=== PATIENT | male | born 1995 | race Caucasian/White ===

== ENCOUNTER 2020-04-10 06:01 | Outpatient (REF) | payer SELFPAY ==
[2020-04-10 06:18] LABS: COVID-19 Test Negative (Negative)
== END 2020-04-10 06:02 | disposition home or self-care (01) ==
LOC: HO.LAB 06:01
PROVIDERS: Visit Provider Internal Medicine
DX: Z20.828 Contact with and (suspected) exposure to other viral communicable diseases (principal)
CPT/HCPCS: 87635; C9803

== ENCOUNTER 2020-04-12 06:02 | Outpatient (REF) | payer OTHER, SELFPAY ==
[2020-04-12 06:25] LABS: COVID-19 Test Negative (Negative)
== END 2020-04-12 06:03 | disposition home or self-care (01) ==
LOC: HO.EMPCOV 06:02
PROVIDERS: Visit Provider Internal Medicine
DX: Z20.828 Contact with and (suspected) exposure to other viral communicable diseases (principal)
CPT/HCPCS: 87635; C9803

== ENCOUNTER 2020-06-17 13:14 | Outpatient (REF) | payer OTHER, SELFPAY ==
[2020-06-17 13:37] LABS: COVID-19 Test Negative (Negative)
== END 2020-06-17 13:15 | disposition home or self-care (01) ==
LOC: HO.EMPCOV 13:14
PROVIDERS: Visit Provider Internal Medicine
DX: Z20.822 Contact with and (suspected) exposure to COVID-19 (principal)
CPT/HCPCS: 36415; 87635; C9803